=== PATIENT | female | born 1935 | race Asian ===

== ENCOUNTER 2022-03-13 12:45 | Outpatient (CLI) | payer MEDICARE, OTHER ==
[2022-03-13] MEDS ORDERED: Iopamidol-370 76% 500 ML 1 ML ONE (15:10)
== END 2022-03-13 12:46 | disposition home or self-care (01) ==
LOC: BICCT 12:45
PROVIDERS: ATTEND Family Medicine
DX: S09.90XA Unspecified injury of head, initial encounter (principal)
CPT/HCPCS: 70470; 82565; Q9967

== ENCOUNTER 2024-05-04 05:51 | Day surgery (SDC) | payer MEDICARE, OTHER ==
[2024-05-04] MEDS ORDERED: CEFAZOLIN 2 GM VIAL ONE (06:48)
[2024-05-04] MEDS ORDERED: Vancomycin (BATCH) 1.5 GM/300 ML BAG ONE (06:48)
[2024-05-04] MEDS ORDERED: Tranexamic Acid 1,000 MG/10 ML VIAL ONE (06:48)
[2024-05-04] MEDS ORDERED: Lidocaine 1% (PF) 30 ML VIAL ONE (07:05)
[2024-05-04] MEDS ORDERED: fentaNYL 50 mcg/mL 1 mL Vial ONE (07:05)
[2024-05-04] MEDS ORDERED: Ropivacaine 0.5% HCl/PF (150 MG/30 ML VIAL) ONE (07:05)
[2024-05-04] MEDS ORDERED: Ropivacaine 0.2% HCl/PF 20 ML ONE (07:05)
[2024-05-04] MEDS ORDERED: Vancomycin 1 GM/200 ML (FROZEN) BAG ONE (07:13)
[2024-05-04] MEDS ORDERED: CEFAZOLIN 1 GM VIAL ONE (07:13)
[2024-05-04] MEDS ORDERED: fentaNYL PF 100 MCG/2 ML SYRINGE ONE (07:24)
[2024-05-04] MEDS ORDERED: PROPOFOL 20 ML ONE (07:25)
[2024-05-04] MEDS ORDERED: Dexamethasone 20 MG/5 ML VIAL ONE (07:51)
[2024-05-04] MEDS ORDERED: Ondansetron PF 4 MG/2 ML Vial ONE (07:51)
[2024-05-04] MEDS ORDERED: PHENYLEPHRINE-NS 100 MCG/ML 10 ML SYRINGE ONE (07:51)
[2024-05-04] MEDS ORDERED: Ketorolac Tromethamine 30 MG (1 mL) VIAL ONE (07:51)
== END 2024-05-04 11:38 | disposition home or self-care (01) ==
LOC: EDSEX → SDC 05:51 → EDSEX 09:00 → SDC 11:38
PROVIDERS: ATTEND Student in an Organized Health Care Education/Training Program
PROC: 0QSK04Z Reposition Left Fibula with Internal Fixation Device, Open Approach (ICD-10-PCS; principal; 2024-05-04)
DX: S82.842A Displaced bimalleolar fracture of left lower leg, initial encounter for closed fracture (principal); I10 Essential (primary) hypertension; E11.9 Type 2 diabetes mellitus without complications; E78.5 Hyperlipidemia, unspecified; X58.XXXA Exposure to other specified factors, initial encounter
CPT/HCPCS: 27814; 73610; C1713 ×8; J0690; J1100; J1885; J2405; J2704; J2795 ×2; J3010; J3370; J3370-JW